=== PATIENT | male | born 1980 | race Caucasian/White ===

== ENCOUNTER 2017-07-05 21:01 | Emergency (ER) | payer OTHER ==
[2017-07-05] MEDS: ONDANSETRON 4MG/2ML VIAL (J2405) IV (22:45)
[2017-07-05] MEDS: NS 1,000 ML IV (22:45)
[2017-07-05 22:55] LABS: HEMATOCRIT 42.7 % (42.0-52.0); HEMOGLOBIN 14.5 g/dl (14.0-18.0); MEAN CORPUSCULAR HEMOGLOBIN 30.1 pg (27.0-33.0); MEAN CORPUSCULAR VOLUME 88.8 fl (80.0-96.0); PLATELET COUNT, AUTOMATED 333 10^3/uL (150-450); RED BLOOD COUNT 4.81 10^6/uL (4.30-6.10); RED CELL DISTRIBUTION WIDTH 12.6 % (11.5-14.5); WHITE BLOOD COUNT 12.8 10^3/uL (4.0-10.0)
[2017-07-05 23:00] LABS: POSITIVE DIFF POS FLAG
[2017-07-05 23:01] LABS: ADD MANUAL DIFFER YES; DIFF SLIDE NUMBER 175
[2017-07-05 23:20] LABS: ALBUMIN 3.7 GM/DL (3.2-5.2); ALBUMIN/GLOBULIN RATIO 1.19 (1.00-1.93); ALKALINE PHOSPHATASE 77 U/L (45-117); ALT/SGPT 45 U/L (12-78); ANION GAP 8 MEQ/L (8-16); AST/SGOT 26 U/L (7-37); BILIRUBIN,DIRECT 0.2 MG/DL (0.0-0.2); BILIRUBIN,TOTAL 0.6 MG/DL (0.2-1.0); BLOOD UREA NITROGEN 16 MG/DL (7-18); CALCIUM LEVEL 8.2 MG/DL (8.5-10.1); CARBON DIOXIDE LEVEL 23 MEQ/L (21-32); CHLORIDE LEVEL 106 MEQ/L (98-107); CREATININE FOR GFR 1.01 MG/DL (0.70-1.30); GLOMERULAR FILTRATION RATE > 60.0 (>60); GLUCOSE, FASTING 90 MG/DL (70-100); LIPASE 73 U/L (73-393); POTASSIUM SERUM 3.7 MEQ/L (3.5-5.1); SODIUM LEVEL 137 MEQ/L (136-145); TOTAL PROTEIN 6.8 GM/DL (6.4-8.2)
[2017-07-05 23:22] LABS: ATYPICAL LYMPH 4 % (0-5); BANDS 6 % (< 11); LYMPHOCYTES 14 % (16-52); MONOCYTES 16 % (0-8); NEUTROPHILS 59 % (35-75); PLATELET ESTIMATE NORMAL (NORMAL)
[2017-07-05 23:23] LABS: EOSINOPHILS 1 % (0-5)
== END 2017-07-06 00:40 | disposition home or self-care (01) ==
LOC: M ED 21:01
DX: R11.10 Vomiting, unspecified (principal); R19.7 Diarrhea, unspecified; M19.90 Unspecified osteoarthritis, unspecified site; Z79.899 Other long term (current) drug therapy
CPT/HCPCS: J2405